=== PATIENT | male | born 1985 | race African-American/Black ===

== ENCOUNTER 2019-02-20 03:20 | Emergency (ER) | payer SELFPAY ==
[~2019-02-20] VITALS: Ht 188 cm; Wt 108.9 kg
[2019-02-20] MEDS ORDERED: NKM (03:29)
--- NOTE | 2019-02-20 03:38 | NUR ---
ED Nurse Note: Patient walked into ED "foul smell on my left leg" patient states that hes had swelling on his left leg for "months" now however today, the patient states "the smell is really bad now" complains of 8/10 pain, no fever
[2019-02-20 03:39] VITALS: BP 160/90
[2019-02-20] MEDS ORDERED: FUROSEMIDE20 M1 ORAL (03:55)
[2019-02-20] MEDS ORDERED: DOXYCYCLINE MO100 MG ORAL (03:55)
--- NOTE | 2019-02-20 03:56 | Emergency Room Report ---
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 He presents with chief complaint of drainage and edema to his left lower extremity. He has a history of lymphedema mostly in the left leg. He said for the last week he has a smell to his lower extremity. Little bit of fluid leakage but usually clear. No fever chills but no nausea no vomiting. He had a work-up on this leg few months ago. Ultrasound was negative for DVT. Labs unremarkable. Better with elevation. Better with compression stocking. Allergies: Coded Allergies: No Known Allergies (Unverified , 02/20/19) Patient History Past Medical History: see triage record, old chart reviewed Past Surgical History: none Pertinent Family History: none Social History: Denies: smoking Immunizations: other Reviewed Nursing Documentation: PMH: Agreed; PSxH: Agreed Nursing Documentation-[facility] Past Medical History: No Stated History Review of Systems Eye: Denies: eye pain, blurred vision ENT: Denies: ear pain, nose congestion, throat swelling Respiratory: Denies: cough, shortness of breath Cardiovascular: Denies: chest pain, palpitations Gastrointestinal: Denies: abdominal pain, diarrhea, nausea, vomiting Musculoskeletal: Denies: back pain, joint pain Skin: Denies: rash Neurological: Denies: headache, numbness Endocrine: Denies: increased thirst, increased urine Hematologic/Lymphatic: Denies: easy bruising All Other Systems: negative except mentioned in HPI Physical Exam Vital Signs Date Time Temp Pulse Resp B/P (MAP) Pulse Ox O2 Delivery O2 Flow Rate FiO2 02/20/19 03:23 98.6 101 18 160/90 (113) 98 Room Air Vitals with high blood pressure Sp02 EP Interpretation: reviewed, normal General Appearance: well appearing, no apparent distress, alert Head: normocephalic, atraumatic Eyes: bilateral eye PERRL, bilateral eye EOMI ENT: hearing grossly normal, normal pharynx Neck: full range of motion, supple, no meningismus Respiratory: chest non-tender, lungs clear, normal breath sounds Cardiovascular #1: regular rate, rhythm, no murmur Gastrointestinal: normal bowel sounds, non tender, no mass, no organomegaly, no bruit, non-distended Musculoskeletal: back normal, gait/station normal, normal range of motion, other - Both lower extremities has lymphedema. Left lower extremity with lymphedema but no redness. No pain. No purulent discharge. Neurologic: alert, oriented x3 Psychiatric: mood/affect normal Skin: warm/dry Medical Decision Making Diagnostic Impression: Primary Impression: Lymphedema of extremity Additional Impression: Cellulitis Qualified Codes: L03.116 - Cellulitis of left lower limb ER Course Patient with lymphedema. Because of the increasing smell, will cover with antibiotics. No evidence of DVT or abscess seen. Last Vital Signs Date Time Temp Pulse Resp B/P (MAP) Pulse Ox O2 Delivery O2 Flow Rate FiO2 02/20/19 03:39 101 18 Room Air 02/20/19 03:39 98.6 160/90 98 Status: unchanged Disposition: HOME, SELF-CARE Condition: Stable Scripts Doxycycline Monohydrate* (DOXYCYCLINE MONOHYDRATE*) 100 Mg Capsule 100 MG ORAL Q12H, #14 CAP 0 Refills Prov: Jose Irving MD 02/20/19 Furosemide* (LASIX*) 20 Mg Tablet 20 MG ORAL DAILY, #30 TAB Prov: Jose Irving MD 02/20/19 Referrals: NOT CHOSEN [facility]/,REFERRING (PCP) Additional Instructions: Follow-up with your doctor in 7 days. Return if worse. Jose Irving MD Feb 20, 2019 03:56
[2019-02-20 04:02] VITALS: BP 152/85
--- NOTE | 2019-02-20 04:03 | NUR ---
ER DISCHARGE NOTE: Patient is cleared to be discharged per ERMD, pt is aox4, on room air, with stable vital signs. pt was given dc and prescription instructions, pt was able to verbalize understanding, pt id band removed without complications. pt is able to ambulate with steady gait. pt took all belongings.
== END 2019-02-20 04:03 | disposition home or self-care (01) ==
LOC: EMR 03:39
DX: R59.1 Generalized enlarged lymph nodes (principal); L03.116 Cellulitis of left lower limb
CPT/HCPCS: 99282

== ENCOUNTER 2019-03-08 21:46 | Emergency (ER) | payer SELFPAY ==
[~2019-03-08] VITALS: Ht 188 cm; Wt 108.9 kg
[~2019-03-08 21:46] MED LIST: DOXYCYCLINE MO100 MG ORAL; FUROSEMIDE20 M1 ORAL; NKM
[2019-03-08 21:57] VITALS: BP 137/72
--- NOTE | 2019-03-08 21:57 | NUR ---
ED Nurse Note: pt walked in c/o swelling face since today and left leg infection x 2 wks, pt reports he has been taking medication but it didn't go away. reports foul smell and pain. patients face is raised and does have redness however no shortness of breath. tounge is not inflammed. patient is alert oriented x4, ambulatory with a steady gait, VSS
--- NOTE | 2019-03-08 22:11 | Emergency Room Report ---
History of Present Illness General Chief Complaint: Skin Rash/Abscess Source: Patient Present Illness HPI The patient has been treated for a cellulitis from venous disease in his left leg. Since Wednesday he started having swelling in his eyes. Today his face broke out completely. He finished the doxycycline a few days ago for the cellulitis. There was some foul-smelling drainage that cleared up on the antibiotics but it has returned. He states that he feels he needs more. He is never had a rash like he has on his face. Is itching. There is some crusting of his eyes. Denies fevers, chills, cough, throat swelling, nausea, vomiting, diarrhea. Believes his tetanus is up-to-date. Allergies: Coded Allergies: No Known Allergies (Unverified , 02/20/19) Patient History Past Medical History: see triage record Social History: Reports: smoking Social History Narrative at home Reviewed Nursing Documentation: PMH: Agreed; PSxH: Agreed Nursing Documentation-PMH Past Medical History: No Stated History Review of Systems All Other Systems: negative except mentioned in HPI Physical Exam Vital Signs Date Time Temp Pulse Resp B/P (MAP) Pulse Ox O2 Delivery O2 Flow Rate FiO2 03/08/19 21:56 98.4 114 18 98 Room Air Sp02 EP Interpretation: reviewed, normal General Appearance: well appearing, no apparent distress, GCS 15 Head: normocephalic, atraumatic Eyes: right eye other - Some beige crusty discharge; bilateral eye PERRL, bilateral eye lid inflammation ENT: no angioedema, moist mucus membranes Neck: supple Respiratory: no respiratory distress, speaking full sentences Cardiovascular #1: regular rate, rhythm, other - Venous disease bilaterally more significant on the left with brawny edema Gastrointestinal: normal inspection Musculoskeletal: gait/station normal, normal range of motion, no calf tenderness - Negative Homans Neurologic: alert, oriented x3, normal gait, grossly normal Psychiatric: mood/affect normal Skin: other - Maculopapular rash on face without erythema Medical Decision Making Diagnostic Impression: Primary Impression: Facial dermatitis Additional Impression: Venous stasis ulcer Qualified Codes: I83.002 - Varicose veins of unspecified lower extremity with ulcer of calf; L97.201 - Non-pressure chronic ulcer of unspecified calf limited to breakdown of skin ER Course Presents with a venous stasis ulcer that had improvement with antibiotics but he is out of them now and now a facial rash that started last Wednesday, it is Wednesday today. Differential includes allergic reaction, reaction to doxycycline, spread of infection, viral exanthem amongst others. Based on the fact that he needs antibiotics Bactrim will be used instead of doxycycline. In addition prednisone and Benadryl we will be given. Differential includes allergic reaction, spread of staph infection to face, nonspecific dermatitis of the face amongst others. The patient is not toxic and there is no airway involvement. No laboratory studies indicated. Discussed treatment with patient. He understands he needs close outpatient observation and reevaluation by his doctors. Patient stable for outpatient observation and treatment. Last Vital Signs Date Time Temp Pulse Resp B/P (MAP) Pulse Ox O2 Delivery O2 Flow Rate FiO2 03/08/19 23:56 98.4 82 18 142/70 98 Room Air Status: improved Disposition: HOME, SELF-CARE Condition: Improved Scripts Trimethoprim/Sulfamethoxazole 160/800* (BACTRIM DS TABLET*) 1 Each Tablet 1 TAB ORAL Q12H, #20 TAB 0 Refills Prov: Blayne Castillo MD 03/08/19 Diphenhydramine Hcl* (BENADRYL*) 25 Mg Capsule 25 MG ORAL Q6H PRN for Itching, #20 CAP Prov: Blayne Castillo MD 03/08/19 Prednisone* (PREDNISONE*) 20 Mg Tablet 40 MG ORAL DAILY, #10 TAB Prov: Blayne Castillo MD 03/08/19 Blayne Castillo MD Mar 08, 2019 22:11
[2019-03-08] MEDS ORDERED: PREDNISONE20 MG ORAL (22:14)
[2019-03-08] MEDS ORDERED: BENADRYL25 MG ORAL (22:14)
[2019-03-08] MEDS ORDERED: BACTRIM DS TAB1 EAC1 ORAL (22:14)
[2019-03-08] MEDS ORDERED: Bactrim-DS 1 tab ORAL ONE (22:15)
[2019-03-08 23:56] VITALS: BP 142/70
== END 2019-03-08 22:30 | disposition home or self-care (01) ==
LOC: EMR 22:30
DX: L30.9 Dermatitis, unspecified (principal); I83.002 Varicose veins of unspecified lower extremity with ulcer of calf; L97.201 Non-pressure chronic ulcer of unspecified calf limited to breakdown of skin; F17.200 Nicotine dependence, unspecified, uncomplicated
CPT/HCPCS: 99282

== ENCOUNTER 2019-08-15 21:47 | Emergency (ER) | payer MEDICAID ==
[~2019-08-15] VITALS: Ht 188 cm; Wt 108.9 kg
[~2019-08-15 21:47] MED LIST changes: +BACTRIM DS TAB1 EAC1 ORAL; +BENADRYL25 MG ORAL; +PREDNISONE20 MG ORAL
--- NOTE | 2019-08-15 22:11 | NUR ---
ED Nurse Note: Pt ambulated to ED from home c/o / pain, swelling, oozing from L lower leg x2 weeks. Pt has had cellulitis before, R lower leg is also slightly swollen. VSS denies fever, pt is A&Ox4. ERMD at bedside
[2019-08-15] MEDS ORDERED: FUROSEMIDE20 M1 ORAL (22:13)
[2019-08-15] MEDS ORDERED: DOXYCYCLINE MO100 MG ORAL (22:13)
[2019-08-15] MEDS ORDERED: ACETAMINOPHEN-1 EAC1 ORAL (22:13)
[2019-08-15 22:15] VITALS: BP 157/95
--- NOTE | 2019-08-15 22:15 | NUR ---
ER DISCHARGE NOTE: Patient is cleared to be discharged per ERMD, pt is aox4, on room air, with stable vital signs. pt was given dc and prescription instructions, pt was able to verbalize understanding, pt id band removed. pt is able to ambulate with steady gait. pt took all belongings.
--- NOTE | 2019-08-16 04:32 | Emergency Room Report ---
History of Present Illness General Chief Complaint: Lower Extremity Injury Source: Patient Present Illness HPI 34-year-old male presents ED for evaluation. Complaining of pain and swelling to the left lower extremity. History of lymphedema. States that it has gotten worse over the last few weeks. pain is dull, 7 out of 10, nonradiating. Denies fevers or chills. States it is starting to smell and is weeping. States last time he was here for similar presentation he was discharged with antibiotics and states it did resolve. No other aggravating relieving factors. Denies any other associated symptoms Allergies: Coded Allergies: No Known Allergies (Unverified , 02/20/19) Patient History Past Medical History: none Past Surgical History: none Pertinent Family History: none Social History: Denies: smoking, alcohol use, drug use Immunizations: UTD Reviewed Nursing Documentation: PMH: Agreed; PSxH: Agreed Review of Systems All Other Systems: negative except mentioned in HPI Physical Exam Vital Signs Date Time Temp Pulse Resp B/P (MAP) Pulse Ox O2 Delivery O2 Flow Rate FiO2 08/15/19 21:54 98.1 106 18 157/95 (115) 99 Room Air Sp02 EP Interpretation: reviewed, normal General Appearance: no apparent distress, alert, GCS 15, non-toxic Head: normocephalic Eyes: bilateral eye normal inspection, bilateral eye PERRL ENT: normal ENT inspection Neck: normal inspection Respiratory: normal inspection Cardiovascular #1: normal inspection Gastrointestinal: normal inspection Rectal: deferred Genitourinary: no CVA tenderness Musculoskeletal: normal inspection Neurologic: alert, motor strength/tone normal, oriented x3, sensory intact, responsive, speech normal Psychiatric: normal inspection Skin: other - lymphedema LLE, erythema noted. no discharge Lymphatic: normal inspection Medical Decision Making Diagnostic Impression: Primary Impression: Lymphedema ER Course Hospital Course 34-year-old male presents to ED with redness, swelling to LLE Differential diagnoses include: Cellulitis, dermatitis, insect bite, abscess Clinical course Patient placed on stretcher. After initial history, physical exam reveals a male in no acute distress. On exam there is pre-existing lymphedema to the left lower extremity. There is some erythema and induration noted. No discharge. Patient afebrile. Nontoxic-appearing. Will discharge with antibiotics and Lasix. States that he just got insurance through his job. Will provide referrals Diagnosis - lymphedema stable and discharged to home with prescription for doxycycline, lasix, tylenol #3. Instructed to followup with PMD. Instructed return to ED if symptoms recur or worsen Last Vital Signs Date Time Temp Pulse Resp B/P (MAP) Pulse Ox O2 Delivery O2 Flow Rate FiO2 08/15/19 22:15 98.1 18 157/95 99 Room Air 08/15/19 21:54 106 Status: improved Disposition: HOME, SELF-CARE Condition: Stable Scripts Acetaminophen With Codeine (T#3) (TYLENOL #3 TAB*) Y Tab 1 TAB ORAL Q8H PRN for For Pain for 3 Days, #12 TAB Prov: Les Arredondo MD 08/15/19 Doxycycline Monohydrate* (DOXYCYCLINE MONOHYDRATE*) 100 Mg Capsule 100 MG ORAL Q12H, #14 CAP 0 Refills Prov: Les Arredondo MD 08/15/19 Furosemide* (LASIX*) 20 Mg Tablet 20 MG ORAL DAILY, #30 TAB Prov: Les Arredondo MD 08/15/19 Referrals: NOT CHOSEN [facility]/,REFERRING (PCP) [facility] Patient Instructions: Lymphedema Les Arredondo MD Aug 16, 2019 04:32
== END 2019-08-15 22:15 | disposition home or self-care (01) ==
LOC: EMR 22:15
DX: I89.0 Lymphedema, not elsewhere classified (principal)
CPT/HCPCS: 99282